=== PATIENT | male | born 1945 | race Caucasian/White ===

== ENCOUNTER 2017-05-08 10:16 | Emergency (ER) | payer OTHER ==
[2017-05-08 10:21] VITALS: O2SAT 100; BMI 23.1
[2017-05-08] MEDS ORDERED: Sodium Chloride 0.9% 1,000 ML IV STA (10:22)
[2017-05-08 10:34] LABS: EOS # 0.1 K/uL (0.0-0.7); LYMPH # 1.4 K/uL (1.0-4.3); MEAN CORPUSCULAR HGB CONC 33.1 g/dL (33.0-37.0); MONO # 0.3 K/uL (0.0-0.8)
[2017-05-08 10:41] LABS: BASO % 0.7 % (0.0-2.0); EOS % 1.8 % (0.0-4.0); HEMATOCRIT 41.6 % (35.0-51.0); LYMPH % 25.2 % (20.0-40.0); MEAN CELL VOLUME 90.5 fL (80.0-94.0); MEAN PLATELET VOLUME 7.7 fL (7.2-11.7); MONO % 4.8 % (0.0-10.0); NRBC % 0.5 % (0.0-2.0); RED CELL DISTRIBUTION WIDTH 12.5 % (11.5-14.5); WHITE BLOOD COUNT 5.5 K/uL (4.8-10.8)
[2017-05-08] MEDS ORDERED: Iodixanol 320 MG/ML 100 ML BOTTLE IV ONE (10:45)
[2017-05-08] MEDS ORDERED: Sodium Chloride 0.9% 1,000 ML IV ONE (10:45)
--- NOTE | 2017-05-08 10:47 | RAD ---
PROCEDURE: CHEST RADIOGRAPH, 1 VIEW HISTORY: Shortness of breath COMPARISON: None available. FINDINGS: LUNGS: The lungs are well inflated and clear. PLEURA: No pneumothorax or pleural fluid seen. CARDIOVASCULAR: Normal. OSSEOUS STRUCTURES: No significant abnormalities. VISUALIZED UPPER ABDOMEN: Normal. OTHER FINDINGS: None. IMPRESSION: No acute findings.
[2017-05-08 10:49] LABS: ALKALINE PHOSPHATASE 49 U/L (38-126); ALT/SGPT 39 U/L (21-72); AST/SGOT 46 U/L (17-59); BILIRUBIN,TOTAL 0.8 mg/dL (0.2-1.3); BLOOD UREA NITROGEN 16 mg/dL (9-20); CALCIUM 8.3 mg/dl (8.6-10.4); CARBON DIOXIDE 22 mmol/L (22-30); CHLORIDE 105 mmol/L (98-107); GFR AFRICAN-AMERICAN > 60; GLUCOSE,RANDOM 170 mg/dL (75-110); POTASSIUM 3.1 mmol/L (3.6-5.2); SODIUM 140 mmol/L (132-148); TOTAL PROTEIN 6.2 g/dL (6.3-8.3)
[2017-05-08 11:08] LABS: ALB/GLOB RATIO 1.5 (1.0-2.1)
[2017-05-08 11:14] VITALS: RESP 20
--- NOTE | 2017-05-08 11:14 | C.PDOC ---
History Of Present Illness 71 y/o male BIBA with c/o chest pain since this morning, associated with weakness of right leg. Patient reports history of hypertension with good compliance w/ htn meds. Patient reports he is unable to move his right leg. Denies fever, chills, cough, SOB, nausea, vomiting, or other associated symptoms. Time Seen by Provider: 05/08/17 10:20 Chief Complaint (Nursing): Chest Pain History Per: Patient History/Exam Limitations: no limitations Onset/Duration Of Symptoms: Days Current Symptoms Are (Timing): Still Present Associated Symptoms: denies: Nausea, Diaphoresis Recent travel outside of the [place]: No Past Medical History Reviewed: Historical Data, Nursing Documentation, Vital Signs Vital Signs: Last Vital Signs Temp 95 F L 05/08/17 11:44 Pulse 88 05/08/17 11:44 Resp 20 05/08/17 11:44 BP 102/49 L 05/08/17 11:44 Pulse Ox 100 05/08/17 11:44 - Medical History PMH: HTN Family History: States: Unknown Family Hx - Social History Hx Alcohol Use: No Hx Substance Use: No Review Of Systems Except As Marked, All Systems Reviewed And Found Negative. Constitutional: Negative for: Fever, Chills Cardiovascular: Positive for: Chest Pain. Negative for: Palpitations Respiratory: Negative for: Shortness of Breath, Wheezing Gastrointestinal: Negative for: Nausea, Vomiting, Abdominal Pain Skin: Negative for: Rash Neurological: Positive for: Weakness (right leg). Negative for: Headache, Dizziness Physical Exam - Physical Exam Appears: Non-toxic, Other (thin, moderate distress) Skin: Warm, Dry, No Diaphoretic Head: Atraumatic, Normacephalic Oral Mucosa: Moist Chest: Symmetrical, Other (chest pain not digitally reproducible) Cardiovascular: Rhythm Regular Respiratory: Normal Breath Sounds, No Rales, No Rhonchi, No Wheezing Gastrointestinal/Abdominal: Soft, No Tenderness Back: Normal Inspection Extremity: Normal ROM Neurological/Psych: Oriented x3, Other (R leg paresthesia) ED Course And Treatment - Laboratory Results Result Diagrams: 05/08/17 10:27 05/08/17 10:27 ECG: Interpreted By Me ECG Rhythm: Sinus Rhythm ECG Interpretation: Normal Rate From EC O2 Sat by Pulse Oximetry: 100 (RA) Pulse Ox Interpretation: Normal - Radiology CXR: Interpreted by Me, Read By Radiologist CXR Interpretation: Yes: No Acute Disease, Other (? widened mediastinum) - CT Scan/US CT Head Other Rad Studies (CT/US): Read By Radiologist, Radiology Report Reviewed CT/US Interpretation: FINDINGS: HEMORRHAGE: No intracranial hemorrhage. BRAIN : Diffuse atrophy with prominence of the ventricles and sulci noted. No mass effect or edema. The bravo-white matter differentiation appears intact. Please note that MRI with diffusion imaging is more sensitive in the detection of acute ischemic event. VENTRICLES: No hydrocephalus. CALVARIUM: Unremarkable. PARANASAL SINUSES: Unremarkable as visualized. No significant inflammatory changes. MASTOID AIR CELLS: Unremarkable as visualized. No inflammatory changes. OTHER FINDINGS: None. IMPRESSION: No acute intracranial pathology identified. Findings as above. CT Angio chest/Abdomen Other Rad Studies (CT/US): Read By Radiologist, Radiology Report Reviewed CT/US Interpretation: Accession No. : [id number]. Patient Name / ID : SRAVANI CARDOZO / [id number]. Exam Date : 05/08/2017 10:55:52 ( Approved ). Study Comment : Sex / Age : M / 71Y. Creator : Tati Howard. Dictator : Kareem Conti MD. Television Specialist : Pump Stitcher : Kareem Conti MD. Approver2 : Report Date : 05/08/2017 11:09:31. My Comment : . PROCEDURE: CT Angiography Chest, Abdomen and Pelvis with and without intravenous contrast. HISTORY: CP, R leg parasthesia, ? aneurysm. COMPARISON: None. TECHNIQUE: Contiguous axial images of the chest, abdomen and pelvis were obtained in the phase of aortic enhancement. A noncontrast enhanced CT of the chest was also obtained to evaluate for possible intramural thrombus. Coronal and sagittal reformats were generated. IV dose administered: 100 mL Visipaque 320. Radiation dose: Total exam DLP = 715.86 mGy-cm. This CT exam was performed using one or more of the following dose reduction techniques: Automated exposure control, adjustment of the mA and/or kV according to patient size, and/or use of iterative reconstruction technique. FINDINGS: CT ANGIOGRAPHY OF THE CHEST WITH & WITHOUT CONTRAST: Please note that no precontrast CT of the chest was performed for this examination peer. AORTA ( CHEST AND ABDOMEN): There is dissection of the ascending and descending portions of the thoracic aorta (type a). There is caps a on the aneurysmal dilatation of the ascending thoracic aorta to a diameter of 4.5 cm. There is high attenuation seen within the false lumen as well as the true. Consistent with non thrombosed false lumen. There is no aneurysmal dilatation of the abdominal aorta. Dissection of the abdominal aorta continues to the level of the renal arteries. This does not continue to the level of the iliac bifurcation. However, there is short segment dissection of the proximal right common iliac artery in conjunction with aneurysmal dilatation up to approximately 2.0 cm diameter. The dissection does not continue into the internal and external iliac vessels. The celiac axis appears to arise from the false lumen. The SMA appears to arise from the tube true lumen. The right renal artery appears to arise from the false lumen. There is dissection of the origin of the right renal artery. The left renal artery appears to arise from the true lumen. There are 2 left renal arteries, both arising from the true lumen. LUNGS: Abnormal hazy opacity about the right hilum contiguous with abnormal soft tissue density in the hilum. This is nonspecific. This soft tissue density in the hilum again narrows the right pulmonary artery. There is also abnormal soft tissue density to a lesser extent in the left hilum. Differential diagnosis includes infiltrating neoplasm such as lymphoma. MEDIASTINUM: Normal heart size. Intermediate attenuation small pericardial effusion, possibly hemopericardium. No discrete lymphadenopathy. As noted above , abnormal ill-defined soft tissue density within the mediastinum and albina with narrowing of the right pulmonary artery. Cannot rule out hemorrhage. Possible infiltrating neoplastic process such as lymphoma. No discrete lymphadenopathy. Aneurysmal dilatation of the ascending thoracic aorta. LYMPH NODES: Unremarkable. PLEURA: Unremarkable. No pneumothorax. No pleural fluid. BONES : Unremarkable. OTHER FINDINGS: None. CT ANGIOGRAPHY OF THE ABDOMEN AND PELVIS WITH CONTRAST: LIVER: Unremarkable. No gross lesion or ductal dilatation. GALLBLADDER AND BILE DUCTS: Unremarkable. PANCREAS: Unremarkable. No gross lesion or ductal dilatation. SPLEEN: Unremarkable. ADRENALS: Unremarkable. No mass. KIDNEYS AND URETERS: Small wedge-shaped defects in cortical enhancement in the right kidney, likely ischemic/embolic, in conjunction with the evident dissection of the right renal artery. No renal mass. No hydronephrosis. No renal calculus. VASCULATURE: As above. STOMACH AND BOWEL: Unremarkable. No obstruction. No gross mural thickening. APPENDIX: Not identified. PERITONEUM: Unremarkable. No free fluid. No free air. LYMPH NODES: Unremarkable. No enlarged lymph nodes. BLADDER: Unremarkable. REPRODUCTIVE: Normal prostate. BONES: No acute fracture. OTHER FINDINGS: None. 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 Origin of the right renal artery from the false lumen. Origin of 2 left renal arteries from the true lumen. Origin of the celiac axis from the false lumen. Origin of the SMA from the true lumen. There is short segment dissection of the right common iliac artery. There is abnormal soft tissue density in the mediastinum with narrowing of the right pulmonary artery. There is probable mild hemopericardium. This abnormal mediastinal soft tissue density may represent blood though an infiltrating neoplastic process must also be considered. Hazy opacity about the right hilum may be related to soft tissue density within the mediastinum and albina. Multifocal small wedge-shaped defects in enhancement of the right renal cortex likely related to the right renal arterial dissection. Ischemic/embolic. Findings were discussed by telephone with Dr. Puri at 11:38 a.m. on 05/08/2017. Reevaluation Time: 11:45 (transported to [facility] [place]) Medical Decision Making Medical Decision Makin Arrival in ED, Bed 4 1030: bedside cardiac US shows ? small pericardial effusion 1115: Spoke to Dr. Villanueva at [facility] [place] at 11:15 who accepts the patient and transfer. 1135: CT scan report at 11:35 shows ascending and descending thoracic aortic aneurysm, and AAA. 1120: 2.5 L NS transfused, SBP approx 100. LR bolus ordered 1130: repeat bedside cardiac US, shows ? small pericardial effusion, no RV compromise 1140: [facility] ALS arrived 1145: Pt left ED for [facility] [place] Disposition Counseled Patient/Family Regarding: Studies Performed, Diagnosis - Disposition Disposition: Trans to Other Acute Care Hosp Disposition Time: 11:45 Condition: SERIOUS Forms: [employer] (Frisian) - Clinical Impression Clinical Impression: Chest discomfort, Dissecting aortic aneurysm (any part), thoracoabdominal - Scribe Statement The provider has reviewed the documentation as recorded by the Scribe SM All medical record entries made by the Scribe were at my direction and personally dictated by me. I have reviewed the chart and agree that the record accurately reflects my personal performance of the history, physical exam, medical decision making, and the department course for this patient. I have also personally directed, reviewed, and agree with the discharge instructions and disposition.
--- NOTE | 2017-05-08 11:15 | CT ---
PROCEDURE: CT HEAD WITHOUT CONTRAST. HISTORY: chest pain, R leg weak COMPARISON: None available. TECHNIQUE: Axial computed tomography images were obtained through the head/brain without intravenous contrast. Radiation dose: Total exam DLP = 1162.77 mGy-cm. This CT exam was performed using one or more of the following dose reduction techniques: Automated exposure control, adjustment of the mA and/or kV according to patient size, and/or use of iterative reconstruction technique. FINDINGS: HEMORRHAGE: No intracranial hemorrhage. BRAIN: Diffuse atrophy with prominence of the ventricles and sulci noted. No mass effect or edema. The bravo-white matter differentiation appears intact. Please note that MRI with diffusion imaging is more sensitive in the detection of acute ischemic event. VENTRICLES: No hydrocephalus. CALVARIUM: Unremarkable. PARANASAL SINUSES: Unremarkable as visualized. No significant inflammatory changes. MASTOID AIR CELLS: Unremarkable as visualized. No inflammatory changes. OTHER FINDINGS: None. IMPRESSION: No acute intracranial pathology identified. Findings as above.
[2017-05-08 11:28] LABS: INR 1.2
[2017-05-08] MEDS ORDERED: Lactated Ringer's 1,000 ML IV SCH (11:30)
--- NOTE | 2017-05-08 11:39 | CT ---
PROCEDURE: CT Angiography Chest, Abdomen and Pelvis with and without intravenous contrast HISTORY: CP, R leg parasthesia, ? aneurysm COMPARISON: None. TECHNIQUE: Contiguous axial images of the chest, abdomen and pelvis were obtained in the phase of aortic enhancement. A noncontrast enhanced CT of the chest was also obtained to evaluate for possible intramural thrombus. Coronal and sagittal reformats were generated. IV dose administered: 100 mL Visipaque 320 Radiation dose: Total exam DLP = 715.86 mGy-cm. This CT exam was performed using one or more of the following dose reduction techniques: Automated exposure control, adjustment of the mA and/or kV according to patient size, and/or use of iterative reconstruction technique. FINDINGS: CT ANGIOGRAPHY OF THE CHEST WITH & WITHOUT CONTRAST: Please note that no precontrast CT of the chest was performed for this examination peer AORTA (CHEST AND ABDOMEN): There is dissection of the ascending and descending portions of the thoracic aorta (type a). There is caps a on the aneurysmal dilatation of the ascending thoracic aorta to a diameter of 4.5 cm. There is high attenuation seen within the false lumen as well as the true. Consistent with non thrombosed false lumen. There is no aneurysmal dilatation of the abdominal aorta. Dissection of the abdominal aorta continues to the level of the renal arteries. This does not continue to the level of the iliac bifurcation. However, there is short segment dissection of the proximal right common iliac artery in conjunction with aneurysmal dilatation up to approximately 2.0 cm diameter. The dissection does not continue into the internal and external iliac vessels. The celiac axis appears to arise from the false lumen. The SMA appears to arise from the tube true lumen. The right renal artery appears to arise from the false lumen. There is dissection of the origin of the right renal artery. The left renal artery appears to arise from the true lumen. There are 2 left renal arteries, both arising from the true lumen. LUNGS: Abnormal hazy opacity about the right hilum contiguous with abnormal soft tissue density in the hilum. This is nonspecific. This soft tissue density in the hilum again narrows the right pulmonary artery. There is also abnormal soft tissue density to a lesser extent in the left hilum. Differential diagnosis includes infiltrating neoplasm such as lymphoma. MEDIASTINUM: Normal heart size. Intermediate attenuation small pericardial effusion, possibly hemopericardium. No discrete lymphadenopathy. As noted above, abnormal ill-defined soft tissue density within the mediastinum and albina with narrowing of the right pulmonary artery. Cannot rule out hemorrhage. Possible infiltrating neoplastic process such as lymphoma. No discrete lymphadenopathy. Aneurysmal dilatation of the ascending thoracic aorta. LYMPH NODES: Unremarkable. PLEURA: Unremarkable. No pneumothorax. No pleural fluid. BONES: Unremarkable. OTHER FINDINGS: None. CT ANGIOGRAPHY OF THE ABDOMEN AND PELVIS WITH CONTRAST: LIVER: Unremarkable. No gross lesion or ductal dilatation. GALLBLADDER AND BILE DUCTS: Unremarkable. PANCREAS: Unremarkable. No gross lesion or ductal dilatation. SPLEEN: Unremarkable. ADRENALS: Unremarkable. No mass. KIDNEYS AND URETERS: Small wedge-shaped defects in cortical enhancement in the right kidney, likely ischemic/embolic, in conjunction with the evident dissection of the right renal artery. No renal mass. No hydronephrosis. No renal calculus. VASCULATURE: As above STOMACH AND BOWEL: Unremarkable. No obstruction. No gross mural thickening. APPENDIX: Not identified PERITONEUM: Unremarkable. No free fluid. No free air. LYMPH NODES: Unremarkable. No enlarged lymph nodes. BLADDER: Unremarkable. REPRODUCTIVE: Normal prostate BONES: No acute fracture. OTHER FINDINGS: None. 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 Origin of the right renal artery from the false lumen. Origin of 2 left renal arteries from the true lumen. Origin of the celiac axis from the false lumen. Origin of the SMA from the true lumen. There is short segment dissection of the right common iliac artery. There is abnormal soft tissue density in the mediastinum with narrowing of the right pulmonary artery. There is probable mild hemopericardium. This abnormal mediastinal soft tissue density may represent blood though an infiltrating neoplastic process must also be considered. Hazy opacity about the right hilum may be related to soft tissue density within the mediastinum and albina. Multifocal small wedge-shaped defects in enhancement of the right renal cortex likely related to the right renal arterial dissection. Ischemic/embolic. Findings were discussed by telephone with Dr. Puri at 11:38 a.m. on 05/08/2017.
[2017-05-08 11:45] VITALS: BP 102/49; PULSE 88; TEMP 95
--- NOTE | 2017-05-12 11:29 | CARD ---
APPROVED REPORT EKG Measurement Heart [id number] [place] [id number] [id number]-12 [id number] <Conclusion> Normal sinus rhythm Nonspecific ST abnormality Abnormal ECG
== END 2017-05-08 11:49 | disposition short-term general hospital (02) ==
LOC: C.ER 10:16
DX: I71.03 Dissection of thoracoabdominal aorta (principal); R07.9 Chest pain, unspecified; I10 Essential (primary) hypertension
CPT/HCPCS: 70450; 71010; 71270; 74175; 80053; 82948; 83880; 84484; 85025; 85610; 85730; 86850; 86900; 96361; 96374; 96376; 99285; J2270; J7040; J7120; Q9967